=== PATIENT | male | born 1985 | race Caucasian/White ===

== ENCOUNTER 2021-01-07 00:19 | Emergency (ER) | payer MEDICAID, SELFPAY ==
[2021-01-07 00:20] VITALS: BP 149/97; PULSE 105; RESP 18; TEMP 36.3; O2SAT 95
--- NOTE | 2021-01-07 00:21 | ED.GENADUL_ITS ---
Discharge Plan Disposition Patient Disposition: HOME Condition: Good Discharge Details Clinical Impression: Traumatic amputation of fingertip ED Provider: Clarence Hull [facility] and New Rx's Prescriptions: New cephalexin 500 mg capsule 500 mg PO Q8H Qty: 14 RF: 0 Continued divalproex [Depakote] 250 mg Tablet,Delayed Release (Dr/Ec) 250 mg PO BID RF: 0 gabapentin 100 mg Capsule 350 mg PO BID RF: 0 Discharge Instructions Instructions: Finger Amputation (ED) Additional Instructions: Keep hand elevated over the weekend. Use acetaminophen or ibuprofen for pain. May change gauze dressing if necessary but do not remove the yellow Xeroform dressing covering the wound itself. Follow-up with orthopedics, call Saturday for appointment. Return to ED for increasing pain, redness, swelling, fever. Referrals: Pasquale Monge MD [ [facility] STAFF PHYSICIAN] - Medical Decision Making Patient's tetanus will be updated. Digital block done for pain control. X-ray obtained confirming that the tuft of the little finger was amputated with the tip. No other acute bony injury. Wound irrigated and then dressed with Xeroform and gauze. Patient will be started on cephalexin for the weekend. Refer to orthopedics Saturday for follow-up. Return to ED if increasing pain, redness, swelling, fever. HPI General Mode of arrival: ambulatory . Date/Time Provider Initiated Documentation: 01/07/21 00:21 . Limitations to Documentation: no limitations . Information obtained by: patient and RN notes reviewed . HPI Narrative: Patient presents to the ED with left little finger injury. Patient is left-hand dominant. He got the tip of his little finger cut off by a door at his house. He has been drinking tonight. They were unable to find tip. He denies any other injury. He is not sure of tetanus status. Related Data Home Medications Medication Instructions Recorded Confirmed cephalexin 500 mg PO Q8H #14 cap 01/07/21 divalproex [Depakote] 250 mg PO BID 01/07/21 01/07/21 gabapentin 350 mg PO BID 01/07/21 01/07/21 Previous Rx's Medication Instructions Recorded cephalexin 500 mg PO Q8H #14 cap 01/07/21 Allergies Allergy/AdvReac Type Severity Reaction Status Date / Time No Known Allergies Allergy Unverified 01/07/21 00:34 Review of Systems Constitutional Constitutional: Denies fever(s) Cardiovascular Cardiovascular: Denies dyspnea Respiratory Respiratory: Denies cough and Denies dyspnea PFSH Medical History Mood disorder Social History Smoking/Tobacco Use Status: Current-Occasional Tobacco Type: cigarettes Smoking risk assessment performed?: Yes Alcohol Intake: current Alcohol Intake frequency: a few times a week Drug use: Daily Substance use type: marijuana Do you feel safe at home: Yes Do you feel safe in your relationship?: Yes Exam Narrative Exam Narrative: Const: WDWN male in NAD. HEENT: NC/AT. Normal facial exam. Eyes: Normal conjunctiva and sclera. Neck: Supple. Trachea midline. Lungs: Normal respiratory effort. Neuro: A+O x 3. Normal speech, mentation, gait. Cranial nerves II - XII grossly intact. No gross motor or sensory deficit. Ext: Left little finger amputated at the level of the cuticle. Bleeding controlled. Flexion and extension intact. Otherwise normal hand and left upper extremity. Procedures Nerve Block Nerve Block 1: Time out performed: Yes Local Anesthetic: Bupivicaine 0.5% Amount of anesthesia used (mL): 2 Side: left Nerve Blocks: digital Procedure Successful: Yes Patient Tolerated Procedure: well Complications: none
--- NOTE | 2021-01-07 00:40 | DI.RAD_ITS ---
EXAM: XR FINGER LT LITTLE EXAM DATE/TIME: CLINICAL HISTORY: trauma. TECHNIQUE: 2D digital imaging was performed. COMPARISON: None. FINDINGS: BONES: There is an amputation of the terminal tuft of the distal phalanx of the left little finger. Tiny osseous fragments are seen adjacent to the distal diaphysis of the distal phalanx. There is an old healed left 5th metacarpal fracture. JOINTS: No dislocation is present. SOFT TISSUE: There is an amputation of the soft tissues of the distal left little finger. IMPRESSION: Amputation of the soft tissues in the terminal tuft of the distal phalanx of the left little finger. Tiny osseous fragments are seen adjacent to the distal diaphysis of the distal phalanx. DATA REPOSITORY: RADIATION DOSE DELIVERED:
--- NOTE | 2021-01-07 00:52 | DI.VRAD_ITS ---
PROCEDURE INFORMATION: Exam: XR Left Finger(s) Exam date and time: 01/07/2021 12:28 AM Age: 35 years old Clinical indication: Injury or trauma; Other: Aputation; Crushing; Injury date: 01/06/21; Injury details: Hand vs steel door, trauma to 5th digit of left hand TECHNIQUE: Imaging protocol: XR Left fingers. Views: Minimum 2 views. COMPARISON: No relevant prior studies available. FINDINGS: Bones/joints: Amputation of the distal little finger including the tuft of the distal phalanx and adjacent soft tissues. No other acute fracture or dislocation. Healed 5th metacarpal fracture. Soft tissues: Amputation of soft tissues of the distal little finger. IMPRESSION: Amputation of the distal left little finger, including soft tissue and tuft of the distal phalanx. Dictated and Authenticated by: Justin Cortez MD. Ordering:BALTAZAR Lima MD
[2021-01-07] MEDS: Cephalexin 500 MG CAP, 2 CAPS/BTL PO (00:56)
== END 2021-01-07 01:07 | disposition home or self-care (01) ==
LOC: ER 01:27
PROVIDERS: Emergency Provider Emergency Medicine
DX: S68.627A Partial traumatic transphalangeal amputation of left little finger, initial encounter (principal); W26.8XXA Contact with other sharp object(s), not elsewhere classified, initial encounter
CPT/HCPCS: 64450; 90471; 73140